=== PATIENT | female | born 1970 | race Native Hawaiian/Other Pacific Islander ===

== ENCOUNTER 2017-11-03 10:51 | Emergency (ER) | payer OTHER ==
[2017-11-03] MEDS ORDERED: Oxycodone/Acetaminophen 5/325 mg Tab PO STA (11:13)
[2017-11-03] MEDS ORDERED: Oxycodone/Acetaminophen 5/325 mg Tab ONE (11:20)
[2017-11-03] MEDS ORDERED: Morphine 4 MG/ML VIAL IV STA ×2 (11:59→13:01)
[2017-11-03 12:25] LABS: BASO # 0.1 K/uL (0.0-0.2); BASO % 0.8 % (0.0-2.0); EOS % 0.3 % (0.0-4.0); HEMOGLOBIN 13.8 g/dL (11.0-16.0); LYMPH # 1.9 K/uL (1.0-4.3); LYMPH % 24.6 % (20.0-40.0); MEAN CORPUSCULAR HEMOGLOBIN 27.7 pg (27.0-31.0); MEAN CORPUSCULAR HGB CONC 33.8 g/dL (33.0-37.0); MEAN PLATELET VOLUME 8.5 fL (7.2-11.7); MONO # 0.6 K/uL (0.0-0.8); MONO % 8.4 % (0.0-10.0); NEUT % 65.9 % (50.0-75.0); NRBC % 0.1 % (0.0-2.0); RBC 4.99 Mil/uL (3.80-5.20); RED CELL DISTRIBUTION WIDTH 13.4 % (11.5-14.5); WHITE BLOOD COUNT 7.6 K/uL (4.8-10.8)
[2017-11-03 12:30] LABS: ALB/GLOB RATIO 1.1 (1.0-2.1); ALBUMIN 4.5 g/dL (3.5-5.0); ALT/SGPT 12 U/L (9-52); AST/SGOT 31 U/L (14-36); BLOOD UREA NITROGEN 10 mg/dL (7-17); CALCIUM 9.6 mg/dl (8.6-10.4); GFR AFRICAN-AMERICAN > 60; GFR NON-AFRICAN AMERICAN > 60
--- NOTE | 2017-11-03 12:43 | C.PDOC ---
History Of Present Illness 46-year-old female, presents to the emergency department with complaints of two day duration of non-traumatic left shoulder and arm pain. Pain is worse with movement. Patient denies numbness/weakness, fevers, chest pain, shortness of breath or any other associated symptoms. No other complaints at this time. 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 Time Seen by Provider: 11/03/17 10:58 Chief Complaint (Nursing): Upper Extremity Problem/Injury History Per: Patient History/Exam Limitations: no limitations Past Medical History Reviewed: Historical Data, Nursing Documentation, Vital Signs Vital Signs: Last Vital Signs Temp 97.9 F 11/03/17 14:14 Pulse 86 11/03/17 14:14 Resp 18 11/03/17 14:14 BP 160/84 H 11/03/17 14:14 Pulse Ox 100 11/03/17 14:14 Family History: States: No Known Family Hx - Social History Hx Alcohol Use: No Hx Substance Use: No - Immunization History Hx Tetanus Toxoid Vaccination: No Hx Influenza Vaccination: Yes (2017) Hx Pneumococcal Vaccination: No Review Of Systems Constitutional: Negative for: Fever Gastrointestinal: Negative for: Vomiting Musculoskeletal: Positive for: Shoulder Pain. Negative for: Neck Pain, Back Pain Physical Exam - Physical Exam Appears: Non-toxic, No Acute Distress Skin: Normal Color, Warm, Dry, No Rash Head: Normacephalic Eye(s): bilateral: PERRL Nose: Normal, No Flaring, No Discharge Oral Mucosa: Moist Lips: Normal Appearing Neck: Normal ROM Chest: Symmetrical Cardiovascular: Rhythm Regular, No Murmur Respiratory: Normal Breath Sounds, No Accessory Muscle Use Gastrointestinal/Abdominal: Soft, No Tenderness Extremity: Normal ROM, Tenderness (Left anterior shoulder, decreased ROM. Skin is warm, no rashes or gross swelling), No Deformity, No Swelling Neurological/Psych: Oriented x3, Normal Speech ED Course And Treatment - Laboratory Results Result Diagrams: 11/03/17 12:15 11/03/17 12:15 ECG: Interpreted By Me, Viewed By Me ECG Rhythm: Sinus Rhythm ECG Interpretation: No Acute Changes Rate From EC O2 Sat by Pulse Oximetry: 97 (RA) Pulse Ox Interpretation: Normal Medical Decision Making Medical Decision Making: Impression Shoulder pain Plan: * EKG * Flexeril, Toradol, Morphine x2, Percocet * XR L Humerus, Shoulder * Reassess and Disposition Reassess On re-evaluation, patient is still complaining of left shoulder pain. Will check labs and reassess patient. Upon discharge, patient feels better, sling applied, patient now moving arm more freely, nv intact, no cellulitic component. Disposition Counseled Patient/Family Regarding: Studies Performed, Diagnosis, Need For Followup, Rx Given - Disposition Referrals: Sanjuanita Fulton MD [Staff Provider] - Disposition: HOME/ ROUTINE Disposition Time: 14:04 Condition: STABLE Additional Instructions: follow up with orthopedic in 2 days call to make an appointment take pain medications as prescribed return to ER if symptoms worsens or progress Prescriptions: Acetaminophen/Hydrocodone Bi [Vicodin 300 mg-5 mg] 1 tab PO TID PRN #12 tab PRN Reason: Pain, Moderate (4-7) Naproxen [Naprosyn] 500 mg PO BID PRN #16 tab PRN Reason: Pain, Moderate (4-7) Instructions: Shoulder Sprain (DC) Forms: [employer] [facility] (Setswana), General Discharge Instructions - Clinical Impression Clinical Impression: Shoulder pain - Scribe Statement The provider has reviewed the documentation as recorded by the Scribe (Josh Melgar) All medical record entries made by the Scribe were at my direction and personally dictated by me. I have reviewed the chart and agree that the record accurately reflects my personal performance of the history, physical exam, medical decision making, and the department course for this patient. I have also personally directed, reviewed, and agree with the discharge instructions and disposition.
[2017-11-03] MEDS ORDERED: Morphine 4 MG/ML VIAL ONE (13:06)
[2017-11-03 14:14] VITALS: BP 160/84; PULSE 86; RESP 18; TEMP 97.9
--- NOTE | 2017-11-03 15:55 | RAD ---
PROCEDURE: Radiographs of the left humerus. HISTORY: pain COMPARISON: None. FINDINGS: BONES: . No fracture or focal lesion. SOFT TISSUES: Normal. OTHER FINDINGS: Very mild acromioclavicular arthrosis suggested. IMPRESSION: No left humerus pathology noted. Incidentally noted is a very mild left acromioclavicular arthrosis
--- NOTE | 2017-11-04 08:55 | RAD ---
PROCEDURE: Radiographs of the Left Shoulder HISTORY: shoulder pain COMPARISON: No prior. FINDINGS: BONES: Normal. No fracture. JOINTS: Minor narrowing left acromioclavicular joint. SOFT TISSUES: Normal. OTHER FINDINGS: None. IMPRESSION: No evidence displaced fracture nor dislocation. Minor narrowing left acromioclavicular joint.
[2017-11-05 20:25] VITALS: O2SAT 97
== END 2017-11-03 14:19 | disposition home or self-care (01) ==
LOC: C.ER 10:51
DX: M25.512 Pain in left shoulder (principal)
CPT/HCPCS: 73030; 73060; 80053; 82550; 85025; 93005; 96374; 96375; 96376; 99284; J1885; J2270